=== PATIENT | female | born 1965 | race Caucasian/White ===

== ENCOUNTER 2023-08-26 17:55 | Emergency (ER) | payer BC, SELFPAY ==
[2023-08-26 18:05] VITALS: BP 194/113
--- NOTE | 2023-08-26 19:00 | ED.GENMED ---
History of Present Illness
General
Chief Complaint: Blood Pressure Problem
Source: patient
Exam Limitations: none
Time Seen by Provider: 08/26/23 18:26
Nursing documentation reviewed up to this point in time: agreed with
Travel History
Have you had any contact with someone who has COVID-19?: No
Do you have any symptoms of coronavirus? Fever > 100 degrees, chills, cough, shortness of breath, sore throat, loss of taste or smell, muscle aches, or headache?: No
History of Present Illness
History of Present Illness:
57-year-old female with a past medical history of hypertension hypercholesterolemia presents to the ER for evaluation. She reports for the past several days she has felt very tired, fatigued and has had constant left arm pain. She is also noticed
that her blood pressure has been very elevated. She is prescribed Benicar /hydrochlorothiazide and has been taking. She recently prescribed cholesterol medication however medicine but stopped taking because she did not like the way it made her
feel.. She reports she has been short of breath for the past several months at least 6 months and for that has seen a concrete mason at [facility]. She just had a normal echocardiogram July 26 but did not yet have her stress test. She is followed
by (cardiology at [facility]).
She is a smoker. She does have family history of cardiac disease. She reports her dad had his first MA at age 59.
Past History
Past History
ED Past Medical History: None
ED Past Surgical History: None
Social History
Tobacco: Smoker
Review of Systems
Review of Systems
Allergies reviewed?: Yes
All Other Systems: ROS reviewed and negative except as documented in HPI and ROS
Constitutional: Reports fatigue; Denies fever or chills
EENT: Reports no symptoms
Respiratory: Reports trouble breathing; Denies cough
Cardiac: Reports no symptoms; Denies chest pain, diaphoresis, palpitations or syncope
ABD/GI: Reports no symptoms
: Reports no symptoms
Musculoskeletal: Reports other (left arm pain )
Skin: Reports no symptoms
Neurological: Reports no symptoms
Endocrine: Reports no symptoms
Hematologic/Lymphatic: Reports no symptoms
Psychiatric: Reports no symptoms
Phy Exam
General Physical Exam
General Presentation: no apparent distress
General age: appears stated age
General Skin: warm and dry
General Habitus: normal
General Mental: alert
General Hydration: appears well hydrated
Cardiovascular Exam
Cardiovascular Exam: regular rate/rhythm, no murmur and normal peripheral pulses
Pulmonary Exam
Pulmonary Exam: lungs clear and no respiratory distress
Neurological Exam
Neurological Exam: alert and oriented x3
Musculoskeletal Exam
Musculoskeletal Exam: full ROM
Skin Exam
Skin Exam: normal color and warm/dry
Psychiatric Exam
Psychiatric Exam: normal mood/affect
Course
Orders/Labs/Results
Orders:
Orders
08/26/23 18:08
EKG [Electrocardiogram (*1)] Urgent
Reason for Study: Hypertension, Benign
EKG- Treatment ONCE
08/26/23 19:00
Electrocardiogram (*1) Stat
Reason for Study: Other
Other Reason for Exam: chest pain
Cardiac Monitoring- Treatment ONCE
EKG- Treatment ONCE
08/26/23 19:32
Complete Blood Count/With Diff Urgent
Comprehensive Metabolic Panel Urgent
DDimer [D-Dimer] Urgent
Troponin I Urgent
08/26/23 20:33
Chest [CR Chest - 2 Views ] Urgent
Comment:
Reason For Exam: cp
Abnormal Lab Results
08/26/23
19:32
Absolute Lymphs (auto) 5.2 H 10^3/uL
(1.2-3.4)
08/26/23 19:32
08/26/23 19:32
Vital Signs
Initial and Last Documented VS:
Initial Vital Signs
Temp Pulse Resp BP Pulse Ox
98.3 F 78 18 194/113 97
08/26/23 18:05 08/26/23 18:05 08/26/23 18:05 08/26/23 18:05 08/26/23 18:05
Last Documented Vital Signs
Temp Pulse Resp BP Pulse Ox
98.3 F 86 18 162/83 98
08/26/23 18:05 08/26/23 20:22 08/26/23 18:05 08/26/23 20:22 08/26/23 20:22
MDM/Problems Addressed
Differential Diagnosis Includes:
not limited to:
CAD , elevated blood pressure , anemia less likely PE
MDM/Problems Addressed:
Patient presents awake alert no acute distress. She has had shortness of breath for the past 6 months and has been following with cardiology recently had negative echo. She presented today with fatigue left arm pain for the past several days and
had elevated blood pressure which prompted her to come to the ER. She presents awake alert no acute distress cardiac troponin negative no acute findings on EKG D-dimer negative. Lungs are clear nontachypneic nonhypoxic not anemic. Denies any
recent fever she is afebrile. Blood pressure decreased to 160s over 80s. She has no acute distress and has no complaints here we will check chest x-ray however plan for discharge home with her cardiology follow-up.
Chronic conditions affecting care:
htn, high cholesterol
*Radiology
Radiology exam reviewed: preliminary read by ED provider and radiology read reviewed
*Pulse Oximetry
Patient hypoxic: no
*EKG
Interpreted by ED Provider?: Yes
Heart Rate: 70
Rate: normal
Rhythm: sinus
Ischemia: no ischemia
*Critical Care Note
Total Time (30-74mins, 75-104mins- exclusive of procedures): Not Applicable
ED Attending Note
-
Portions of this chart may have been created with voice recognition software.� Occasional wrong word or��sound alike� substitutions may have occurred due to the inherent limitations of voice recognition software.
Discharge Plan
Departure
Patient Disposition: Home (Routine Discharge)
Date of Disposition: 08/26/23
Time of Disposition: 20:51
Patient with high blood pressure during this ER visit?: Yes
Condition: Fair
Covid-19: Not Applicable
Discharge Problem:
elevated blood pressure
Instructions: High Blood Pressure (DC), BLOOD PRESSURE
Prescriptions:
No Action
multivitamin Tablet
1 tab PO DAILY
olmesartan-hydrochlorothiazide [Benicar HCT] 40-12.5 mg Tablet
1 tab PO DAILY
Align 4 mg Capsule
4 mg PO DAILY
Referrals:
Gurvinder Figueroa DO [Family Provider] -
Cedrick Rosario MD [Non-Admitting Privileges] -
Activity Restrictions/Additional Instructions:
As discussed continue to take your current blood medication. Follow-up with your concrete mason in the next several days. Please call cardiology tomorrow to make an appointment in the next several day.s return if any worsening of symptoms
Interventions
Interventions:
*Risk Screen - Suicide Last Done: 08/26/23 19:36
*General Assessment Last Done: 08/26/23 18:05
*ED COVID-19 Vaccine History Last Done: 08/26/23 18:05
ED- Cardiac Assessment Last Done: 08/26/23 19:50
ED- Neurological Assessment Last Done: 08/26/23 19:50
ED- Pulmonary Assessment Last Done: 08/26/23 19:50
[2023-08-26 19:33] VITALS: BMI 30.4
[2023-08-26 19:37] LABS: % Basophils 0.5 % (0-2); % Eosinophils 0.8 % (0-6); % Immature Granulocytes 0.2 % (0-0.5); % Lymphocytes 50.2 % (20.5-51.1); % Neutrophils 43.3 % (42.2-75.2); Absolute Basophils 0.1 10^3/uL (0-0.2); Absolute Eosinophils 0.1 10^3/uL (0-0.7); Absolute Lymphocytes 5.2 10^3/uL (1.2-3.4); Absolute Monocytes 0.5 10^3/uL (0.1-0.6); Absolute Neutrophils 4.5 10^3/uL (1.4-6.5); Hemoglobin 15.4 g/dL (12.0-16.0); Mean Corpuscular Hgb 30.7 pg (27.0-31.0); Mean Corpuscular Volume 87.6 fL (81.0-99.0); Mean Platelet Volume 9.1 fL (7.4-10.4); Nucleated Red Blood Cells % 0 %; Platelet Count 236 10^3/uL (130-400); Red Blood Cell Count 5.02 10^6/uL (4.20-5.40); Red Cell Dist. Width 12.5 % (11.5-14.5); White Blood Cell Count 10.4 10^3/uL (4.8-10.8)
[2023-08-26 19:56] LABS: ALT (SGPT) 31 U/L (0-35); AST (SGOT) 25 U/L (14-36); Albumin 4.3 g/dl (3.5-5.0); Alkaline Phosphatase 73 U/L (38-126); Blood Urea Nitrogen 14 mg/dl (7-17); Calcium 9.8 mg/dl (8.4-10.2); Carbon Dioxide 28 mmol/L (22-30); Chloride 104 mmol/L (98-107); Estimated Creatinine Clearance 83 ml/min; Glucose 96 mg/dl (70-99); Potassium 3.6 mmol/L (3.5-5.1); Sodium 138 mmol/L (135-145); Total Bilirubin 0.5 mg/dl (0.2-1.3); eGFR > 60.00
[2023-08-26 20:01] LABS: Troponin I < 0.012 ng/ml
[2023-08-26 20:22] VITALS: BP 162/83
[2023-08-26 20:23] LABS: D-Dimer < 0.27 ug/mlFEU (0.00-0.50)
== END 2023-08-26 21:39 | disposition home or self-care (01) ==
LOC: EMR 17:55
PROVIDERS: Nurse Practitioner; EMERGENCY PHYSICIAN Student in an Organized Health Care Education/Training Program; FAMILY PHYSICIAN Family Medicine
DX: M79.602 Pain in left arm (principal); R06.02 Shortness of breath; R53.83 Other fatigue; R51.9 Headache, unspecified; I10 Essential (primary) hypertension; E78.00 Pure hypercholesterolemia, unspecified; F17.210 Nicotine dependence, cigarettes, uncomplicated; Z82.49 Family history of ischemic heart disease and other diseases of the circulatory system; Z88.1 Allergy status to other antibiotic agents
CPT/HCPCS: 99283; 71046; 80053; 84484; 85025; 85379; 93005

== ENCOUNTER 2024-11-06 12:54 | Emergency (ER) | payer OTHER, SELFPAY ==
[2024-11-06] VITALS (7 sets, daily range): BP systolic 139–158; BP diastolic 75–94; BMI 31.1
[2024-11-06 13:32] LABS: Urine Albumin Negative (Neg - Trace); Urine Bilirubin Negative (Negative); Urine Character Clear (Clear); Urine Color Yellow; Urine Glucose Negative (Negative); Urine Ketone Negative (Negative); Urine Leukocyte Negative (Negative); Urine Nitrite Negative (Negative); Urine Occult Blood 2+ (Negative); Urine Urobilinogen Negative (Neg - 1+)
[2024-11-06 13:35] LABS: % Basophils 0.4 % (0-2); % Eosinophils 0.6 % (0-6); % Immature Granulocytes 0.1 % (0-0.5); % Lymphocytes 38.9 % (20.5-51.1); % Monocytes 5.1 % (1.7-9.3); % Neutrophils 54.9 % (42.2-75.2); Absolute Eosinophils 0.1 10^3/uL (0-0.7); Absolute Lymphocytes 3.9 10^3/uL (1.2-3.4); Absolute Monocytes 0.5 10^3/uL (0.1-0.6); Absolute Neutrophils 5.5 10^3/uL (1.4-6.5); Hematocrit 41.4 % (37.0-47.0); Hemoglobin 14.3 g/dL (12.0-16.0); Mean Corp Hgb Conc. 34.5 g/dL (33.0-37.0); Mean Corpuscular Hgb 31.1 pg (27.0-31.0); Mean Platelet Volume 9.4 fL (7.4-10.4); Nucleated Red Blood Cells % 0 %; Platelet Count 252 10^3/uL (130-400); Red Cell Dist. Width 12.5 % (11.5-14.5); White Blood Cell Count 9.9 10^3/uL (4.8-10.8)
[2024-11-06 13:44] LABS: ALT (SGPT) 18 U/L (0-35); AST (SGOT) 19 U/L (14-36); Albumin 3.9 g/dl (3.5-5.0); Alkaline Phosphatase 56 U/L (38-126); Blood Urea Nitrogen 21 mg/dl (7-17); Carbon Dioxide 27 mmol/L (22-30); Chloride 104 mmol/L (98-107); Glucose 102 mg/dl (70-99); Lipase 146 U/L (23-300); Potassium 3.8 mmol/L (3.5-5.1); Sodium 140 mmol/L (135-145); Total Bilirubin 0.6 mg/dl (0.2-1.3); Total Protein 6.5 g/dl (6.3-8.2); eGFR > 60.00
[2024-11-06 14:04] LABS: Urine Squamous Cell >30 /LPF (Few)
[2024-11-06 14:06] LABS: Urine Amorphous Seen
[2024-11-06 14:07] LABS: Urine Bacteria Few (Negative)
--- NOTE | 2024-11-06 15:34 | ED.GENMED ---
History of Present Illness
General
Chief Complaint: Abdominal Symptoms
Source: patient
Exam Limitations: none
Time Seen by Provider: 11/06/24 15:13
History of Present Illness
History of Present Illness:
59yoF with a history of hypertension presenting for evaluation of multiple complaints. Patient reports having pain in her bilateral thighs and left groin region over the past several weeks. Pain is worse with standing. She has been taking Tylenol
without much relief. She developed pain throughout her lower abdomen a week ago. She also is experiencing left arm pain since yesterday with some chest tightness. Her mother has a history of heart failure and she is worried about this. Patient
states her pants have been fitting more tightly recently. She denies any fevers, nausea, vomiting, diarrhea, dysuria, vaginal bleeding, vaginal discharge.
Past History
Past History
ED Past Medical History: None
ED Past Surgical History: None
Social History
Tobacco: Smoker
Phy Exam
General Physical Exam
General Presentation: well appearing and no apparent distress
General age: appears stated age
General Skin: warm and dry
General Habitus: normal
General Mental: alert
ENT Exam
ENT Exam: normocephalic
Cardiovascular Exam
Cardiovascular Exam: regular rate/rhythm, no edema, no murmur and normal peripheral pulses (2+ radial and DP pulses bilaterally)
Pulmonary Exam
Pulmonary Exam: lungs clear, no respiratory distress, no rales, no crackles, no rhonchi and no wheezing
Gastrointestinal Exam
Gastrointestinal Exam: normal bowel sounds, soft, non distended and other (+Tenderness throughout lower abdomen. Abdomen soft without rebound or guarding. )
Neurological Exam
Neurological Exam: alert
[place] Coma Scale
Eye Opening: Spontaneous
Verbal Response: Oriented
Motor Response: Obeys Commands
GCS Total Score: 15
Musculoskeletal Exam
Musculoskeletal Exam: other (Bilateral lower extremities are normal to inspection. No pitting edema or skin changes noted. 2+ DP pulses bilaterally. )
Skin Exam
Skin Exam: normal color and warm/dry
Psychiatric Exam
Psychiatric Exam: normal mood/affect
Course
Orders/Labs/Results
Orders:
Orders
11/06/24 13:06
Electrocardiogram (*1) Urgent
Reason for Study: Abdominal Pain
EKG- Treatment ONCE
11/06/24 13:17
Complete Blood Count/With Diff Urgent
Comprehensive Metabolic Panel Urgent
Lipase Urgent
Urinalysis Reflex To Culture Stat
Date Specimen was Collected: 11/06/24
Time Specimen was Collected: 13:06
Urine Microscopic Reflex Cult Stat
11/06/24 15:31
Cardiac Monitoring- Treatment ONCE
Venous Doppler Lwr Ext Bilat [US Periph Venous LOWER Ext Christian] Urgent
Comment:
Reason For Exam: bilateral thigh pain
11/06/24 15:32
CT Abd/pelvis W Iv Cont Urgent
Comment:
Reason For Exam: lower abd pain, L groin pain
CR Chest - 2 Views Urgent
Comment:
Reason For Exam: chest tightness
11/06/24 15:45
Troponin I Urgent
11/06/24 16:00
Ondansetron Injectable [Zofran] 4 mg IV NOW STA
11/06/24 19:53
MetroNIDAZOLE [Flagyl] 500 mg PO NOW STA
Sulfamethox./Trimethoprim Ds [Bactrim Ds 800 mg/160 mg] 1 tablet PO NOW STA
Abnormal Lab Results
11/06/24
13:17
MCH 31.1 H pg
(27.0-31.0)
Absolute Lymphs (auto) 3.9 H 10^3/uL
(1.2-3.4)
BUN 21 H mg/dl
(7-17)
Glucose 102 H mg/dl
(70-99)
Ur Occult Blood Reflex 2+ A
(Negative)
Urine RBC 3-6 A /HPF
(0-2)
Urine Bacteria (Reflex) Few A
(Negative)
11/06/24 13:17
11/06/24 13:17
Vital Signs
Initial and Last Documented VS:
Initial Vital Signs
Temp Pulse Resp BP Pulse Ox
98.4 F 68 18 156/90 98
11/06/24 13:03 11/06/24 13:03 11/06/24 13:03 11/06/24 13:03 11/06/24 13:03
Last Documented Vital Signs
Temp Pulse Resp BP Pulse Ox
98.4 F 71 16 158/91 95
11/06/24 13:03 11/06/24 20:16 11/06/24 20:16 11/06/24 20:16 11/06/24 20:16
MDM/Problems Addressed
Differential Diagnosis Includes:
59yoF here with multiple complaints including bilateral leg pain x several weeks, lower abd pain x 1 week, and L arm pain x 1 day. She is mildly hypertensive with otherwise stable vitals. She is well appearing in no distress. Differential diagnosis
includes but is not limited to: ACS, DVT, diverticulitis, appendicitis, constipation, musculoskeletal
Initial ED plan: Abdominal labs and EKG obtained in triage. EKG shows NSR without ischemic changes. Labs overall unremarkable. UA with microscopic hematuria without signs of infection. Will check troponin, CXR, bilateral venous duplex, and CT
abdomen.
*EKG
Interpreted by ED Provider?: Yes
EKG Intrepretation Date: 11/06/24
Heart Rate: 67
Rate: normal
Rhythm: sinus
[place]: normal axis
Interval: normal interval
QRS Pattern: normal QRS
Ischemia: no ischemia
*Critical Care Note
Total Time (30-74mins, 75-104mins- exclusive of procedures): Not Applicable
Update Note
Update Note:
Troponin WNL. CXR is clear and venous duplex is negative for DVT bilaterally. CT shows mild acute diverticulitis. She reports having intolerances to Augmentin, Ceftin, and Levaquin. She was started on a course of Bactrim and Flagyl. Advised clear
liquid diet until pain improves. She has never had a colonoscopy in the past and was advised to f/u with GI. Small bilateral ovarian cysts noted on CT and patient has not seen a general maintenance helper in about 10 years. She was also given contact information
for OBGYN. ED return precautions reviewed. Patient discharged in stable condition.
ED Attending Note
-
Portions of this chart may have been created with voice recognition software.� Occasional wrong word or��sound alike� substitutions may have occurred due to the inherent limitations of voice recognition software.
Discharge Plan
Departure
Patient Disposition: Home (Routine Discharge)
Date of Disposition: 11/06/24
Time of Disposition: 19:53
Patient with high blood pressure during this ER visit?: Yes
Discharge Problem:
Acute diverticulitis, Bilateral leg pain, Left arm pain, Microscopic hematuria
Instructions: Clear Liquid Diet, Diverticulitis - Discharge instructions
Prescriptions:
New
sulfamethoxazole-trimethoprim [Bactrim DS] 800-160 mg tablet
1 tab PO BID Qty: 13 0RF
metronidazole 500 mg tablet
500 mg PO Q8H 7 Days Qty: 20 0RF
No Action
multivitamin Tablet
1 tab PO DAILY
olmesartan-hydrochlorothiazide [Benicar HCT] 40-12.5 mg Tablet
1 tab PO DAILY
Align (B.infantis) 4 mg Capsule
4 mg PO DAILY
Referrals:
Kane Crenshaw MD [Active] -
Luz Elena Shen MD [Family Provider] -
Avis Gonzalez DO [Active] -
Activity Restrictions/Additional Instructions:
Take antibiotics as prescribed. Eat a clear liquid diet until pain improves.
Please follow-up with your family doctor, OBGYN, and gastroenterology. You had a small amount of blood in your urine today. You should have a repeat urine test to monitor this.
Return to the ER with any worsening symptoms including severe pain and fevers.
Interventions
Interventions:
*Risk Screen - Suicide Last Done: 11/06/24 13:03
*General Assessment Last Done: 11/06/24 13:03
*Neglect/Abuse Screening Last Done: 11/06/24 13:03
*ED- Fall Risk Assessment Last Done: 11/06/24 15:37
*ED COVID-19 Vaccine History Last Done: 11/06/24 15:37
*Nursing Disposition Last Done: 11/06/24 20:24
CF-[id number] Assessment Last Done: 11/06/24 15:45
Discharge Date and Time
Discharge Date/Time: 11/06/24 20:28
Print Language: BRUNEIAN
[2024-11-06 16:22] LABS: Troponin I < 0.012 ng/ml
[2024-11-06] MEDS: ZOFRAN 4 MG IV (16:28)
[2024-11-06] MEDS: BACTRIM DS 800 MG/160 MG 1 TABLET PO (20:12)
[2024-11-06] MEDS: FLAGYL 500 MG PO (20:12)
== END 2024-11-06 20:28 | disposition home or self-care (01) ==
LOC: EMR 12:54
PROVIDERS: Emergency Medicine; Physician Assistant; EMERGENCY PHYSICIAN Emergency Medicine; FAMILY PHYSICIAN Internal Medicine
DX: K57.32 Diverticulitis of large intestine without perforation or abscess without bleeding (principal); I10 Essential (primary) hypertension; M79.605 Pain in left leg; M79.604 Pain in right leg; M79.602 Pain in left arm; R31.29 Other microscopic hematuria; F17.200 Nicotine dependence, unspecified, uncomplicated
CPT/HCPCS: 96374; 99284; 71046; 74177; 80053; 81003; 81015; 83690; 84484; 85025; 93005; 93970; Q9967